=== PATIENT | female | born 1980 | race African-American/Black ===

== ENCOUNTER 2018-05-31 09:23 | Emergency (ER) | payer OTHER ==
[2018-05-31 09:28] VITALS: BMI 25.0
--- NOTE | 2018-05-31 09:58 | PDOC ---
History of Present Illness - General Chief Complaint: Abscess Boil Stated Complaint: WOUND Time Seen by Provider: 05/31/18 09:32 - History of Present Illness Initial Comments: 37yo F with PMH of diabetes sent over from [facility] for abscesses on buttocks and genitals. History was difficult to elicit due to the patient's somnolence. The abscesses on her buttocks have been chronic for over five years. There is also a right labial abscess that the patient reports appeared two or three days ago. She has received incision and drainage procedures in the past. Denies fever or chills, chest pain, shortness of breath. Patient is amenable to treatment. 05/31/18 09:57 Past History - Past Medical History Allergies/Adverse Reactions: Allergies Allergy/AdvReac Type Severity Reaction Status Date / Time No Known Allergies Allergy Verified 05/30/18 22:32 Home Medications: Ambulatory Orders NK [No Known Home Medication] 05/30/18 Anemia: No Asthma: No Cardiac Disorders: No CVA: No COPD: No CHF: No Diabetes: No GI Disorders: No Disorders: No HTN: No Hypercholesterolemia: No Liver Disease: No Seizures: No Thyroid Disease: No - Suicide/Smoking/Psychosocial Hx Smoking History: Current every day smoker Have you smoked in the past 12 months: Yes Number of Cigarettes Smoked Daily: 20 Information on smoking cessation initiated: No 'Breaking Loose' booklet given: 05/30/18 Hx Alcohol Use: Yes Substance Use Type: Alcohol Hx Substance Use Treatment: No Review of Systems - Review of Systems Comments:: Constitutional: no fever, no chills Cardiovascular: no chest pain Respiratory: no shortness of breath Gastrointestinal: no abdominal pain, no nausea, no vomiting Genitourinary: no dysuria, no frequency Musculoskeletal: no myalgia, no arthralgia Skin: +abscesses on buttocks and genital Neurologic: no headache *Physical Exam - Vital Signs Last Vital Signs Temp Pulse Resp BP Pulse Ox 98.5 F 67 18 90/45 100 05/31/18 09:26 05/31/18 09:26 05/31/18 09:26 05/31/18 09:26 05/31/18 09:26 - Physical Exam Comments: General: Somnolent, but arousable, in no acute distress Head: no signs of trauma Eyes: PERRL, EOMI, sclera anicteric ENT: moist mucus membranes, Neck: Normal ROM, supple, no lymphadenopathy Lungs: Lungs clear, Normal breath sounds Cardio: Regular rhythm, S1 and S2 present Abdomen: Soft, nontender, normal bowel sounds Extremities: Normal range of motion SKIN: Extensive collection of abscesses on right buttock with 3-4 draining heads of pus, tender, warm, indurated, fluctuant, about 20cm x 10cm. Abscess on right outer labia along inguinal fold, about 5x1cm Neurologic: Cranial nerves II through XII grossly intact. Normal speech ED Treatment Course - LABORATORY CBC & Chemistry Diagram: 05/31/18 10:20 05/31/18 10:20 Medical Decision Making - Medical Decision Making 37yo F with chronic extensive lesions on her buttocks and lesion. Patient was somnolent, but arousable, throughout entire history-taking. Lesions are extensive. Patient is amenable to surgical intervention. Will order pre-surgical labs: CBC, CMP, EKG, PT/INR, Type and Screen. Hydrating with 1L NS. 05/31/18 10:[address] scan citing pain related to laying on her back. Hypotensive at 85/49, so holding morphine at this time. Ordered another 1L NS 05/31/18 12:55 Discussed with the patient the need for treatment for her abscesses. Patient understands the benefits and risk and continues to refuse treatment. Will prescribe Bactrim (DS) 2 tablets twice a day for ten days. Will refer to Dr. Edgar Fajardo, General Surgeon. 05/31/18 14:37 Discussed case with [facility] 6th floor, Kimberly Hernandez (ext. [phone]). 05/31/18 15:01 Laboratory Tests 05/31/18 05/31/18 05/31/18 10:08 10:20 10:20 WBC 9.2 RBC 4.12 Hgb 10.2 L Hct 31.4 L MCV 76.1 L MCH 24.7 L MCHC 32.4 RDW 18.1 H Plt Count 572 H MPV 6.4 L Absolute Neuts (auto) 7.1 Neutrophils % 77.3 Lymphocytes % 16.6 Monocytes % 4.5 Eosinophils % 1.1 Basophils % 0.5 Nucleated RBC % 0 PT with INR 11.90 INR 1.05 Sodium 144 Potassium 4.0 Chloride 109 H Carbon Dioxide 27 Anion Gap 8 BUN 9 Creatinine 0.6 Creat Clearance w eGFR > 60 Random Glucose 132 H Calcium 8.3 L Total Bilirubin < 0.1 L AST 18 ALT 20 Alkaline Phosphatase 138 H Total Protein 7.0 Albumin 2.3 L Beta HCG, Quant < 1.0 Blood Type Antibody Screen 05/31/18 05/31/18 10:20 10:37 WBC RBC Hgb Hct MCV MCH MCHC RDW Plt Count MPV Absolute Neuts (auto) Neutrophils % Lymphocytes % Monocytes % Eosinophils % Basophils % Nucleated RBC % PT with INR INR Sodium Potassium Chloride Carbon Dioxide Anion Gap BUN Creatinine Creat Clearance w eGFR Random Glucose Calcium Total Bilirubin AST ALT Alkaline Phosphatase Total Protein Albumin Beta HCG, Quant Blood Type O POSITIVE O POSITIVE Antibody Screen Negative *DC/Admit/Observation/Transfer Diagnosis at time of Disposition: Abscess - Discharge Dispostion Disposition: HOME - Referrals Referrals: Chi Fajardo MD [Staff Physician] - - Patient Instructions Printed Discharge Instructions: DI for Skin Abscess Additional Instructions: You were seen in the Emergency Department today for abscesses. These will not heal without surgical intervention. We explained the benefits and risks and you refused treatment at this time. We will send you back to [facility] where you can continue your rehabilitation treatment. Antibiotics to be prescribed: Bactrim (DS) 2 tablets twice a day for ten days. We have also referred you to Dr. Edgar Fajardo, General Surgeon. In the event that you change your mind, you can return back to [facility] for evaluation and treatment. - Post Discharge Activity
[2018-05-31] MEDS ORDERED: SODIUM CHLORIDE 1,000 ML IV STA ×2 (10:08→12:30)
--- NOTE | 2018-05-31 10:29 | PDOC ---
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 for alcohol detox yesterday but was noted today to have large draining abscess on the right buttock and right labia, referred to the emergency department for evaluation. Patient states this has been present for years, recently started draining again , denies any systemic symptoms of fevers or chills. Denies any history of immunocompromise or chronic disease, lives in the area, has no other complaints. - Physicial Exam PE: 05/31/18 10:27 Afebrile Drowsy/sleepy but arousable and answering questions appropriately Extensive right buttock abscess with at least 3 or 4 draining pustular heads, diffusely indurated with areas of fluctuance, labial lesion as noted per resident - Medical Decision Making 05/31/18 10:28 37-year-old female with chronic and extensive right buttock abscesses, now draining pus. No evidence of sepsis, but will need surgical drainage which the patient is agreeable to. Check basic labs CT of the pelvis Surgery consult and disposition 05/31/18 15:13 Labs are within normal limits. Patient refused CAT scan secondary to discomfort , offered pain medication but she continued to refuse. Bedside ultrasound showed several loculated abscesses, which will require incision and drainage. Patient refused intervention and surgical consultation, aware of all risks of delayed/incomplete care including sepsis, chronic wounds, and . Given refusal of any further medical care, will attempt treatment with oral antibiotics and allow patient to return to [facility]. Surgery referral provided , understands return criteria, signout given to [place] care team. We'll arrange for ambulance transportation back. Heart Score/ECG Review #1 ECG reviewed & interpreted by me at: 10:31 General ECG Interpretation: Sinus Rhythm, Normal Rate (65), Normal Intervals ( qtc 447), No acute ischemic changes
[2018-05-31 10:33] LABS: BASO % 0.5 % (0-2.0); EOS % 1.1 % (0-4.5); HEMATOCRIT 31.4 % (32.4-45.2); HEMOGLOBIN 10.2 GM/dL (10.7-15.3); LYMPH % 16.6 % (8-40); MCH 24.7 pg (25.7-33.7); MCHC 32.4 g/dl (32.0-36.0); MEAN CELL VOLUME 76.1 fl (80-96); MEAN PLT VOLUME 6.4 fl (7.5-11.1); MONO % 4.5 % (3.8-10.2); NEUT % 77.3 % (42.8-82.8); PLATELET COUNT 572 K/MM3 (134-434); RBC 4.12 M/mm3 (3.60-5.2); RDW 18.1 % (11.6-15.6); WHITE BLOOD COUNT 9.2 K/mm3 (4.0-10.0)
[2018-05-31 10:45] LABS: INR 1.05 (0.83-1.09); PROTHROMBIN TIME (PATIENT) 11.9 SEC (9.7-13.0)
[2018-05-31 10:53] LABS: ALBUMIN 2.3 g/dl (3.4-5.0); ANION GAP 8 (8-16); BLOOD UREA NITROGEN 9 mg/dL (7-18); CALCIUM 8.3 mg/dL (8.5-10.1); CHLORIDE 109 mmol/L (98-107); CO2 27 mmol/L (21-32); CREATININE 0.6 mg/dL (0.55-1.02); GLUCOSE,RANDOM 132 mg/dL (74-106); SGOT/AST 18 U/L (15-37); SGPT/ALT 20 U/L (12-78); SODIUM 144 mmol/L (136-145)
[2018-05-31 10:55] LABS: ALK PHOS 138 U/L (45-117)
[2018-05-31 11:11] LABS: BILIRUBIN,TOTAL < 0.1 mg/dL (0.2-1.0)
[2018-05-31] MEDS ORDERED: morphine CARPU-JECT 4 MG/1 ML DISP.SYRIN IVPUSH ONE (12:14)
[2018-05-31] MEDS ORDERED: morphine SULFATE 4 MG/ML VIAL ONE (12:27)
[2018-05-31 16:02] VITALS: BP 113/72; PULSE 72; TEMP 98.9
--- NOTE | 2018-05-31 16:55 | EKG ---
Test Reason : Blood Pressure : / mmHG Vent. Rate : 065 BPM Atrial Rate : 065 BPM P-R Int : 162 ms QRS Dur : 094 ms QT Int : 430 ms P-R-T Axes : 081 069 053 degrees QTc Int : 447 ms NORMAL SINUS RHYTHM NONSPECIFIC T WAVE ABNORMALITY ABNORMAL ECG Confirmed by MD DAINA, CHARLOTTE ([id number]) on 05/31/2018 4:54:54 PM Referred By: Confirmed By:CHARLOTTE LAAM MD
== END 2018-05-31 16:20 | disposition home or self-care (01) ==
LOC: JER 09:23
PROC: 3E0337Z Introduction of Electrolytic and Water Balance Substance into Peripheral Vein, Percutaneous Approach (ICD-10-PCS; principal; 2018-05-31)
DX: N76.4 Abscess of vulva (principal); L02.31 Cutaneous abscess of buttock
CPT/HCPCS: 36415; 80053; 84702; 85025; 85610; 86850; 86900; 86901; 87070; 87186; 87205; 93005; 93010; 96360; 96361; 99283-25; J7030